=== PATIENT | male | born 1980 ===

== ENCOUNTER 2022-02-16 10:23 | Emergency (ER) | payer OTHER ==
[2022-02-16] MEDS ORDERED: BALANCED SALT IRRIG (BSS) OPHTH SOLN 15 ML OU ONE (11:13)
[2022-02-16] MEDS ORDERED: LIDOCAINE 1%/EPINEPHRINE 1:100,000 VIAL (20 ML) INFILTRATI NR (11:30)
--- NOTE | 2022-02-16 11:31 | Emergency Department Report ---
Blank Doc - Documentation Documentation: 41-year-old male presents to the ED for laceration to the forehead ,above the r ight eye and right eye trauma. Patient states that he was attempting to move a metal arcelia when approximately 20 -40 weight hit him in the face causing trauma to his face. Patient currently unable to open his right eye. Has bruising noted to his right eye with swelling. Has laceration with bleeding controlled. This initial assessment/diagnostic orders/clinical plan/treatment(s) is/are subject to change based on patients health status, clinical progression and re- assessment by fellow clinical providers in the ED. Further treatment and workup at subsequent clinical providers discretion. Patient/guardian urged not to elope from the ED as their condition may be serious if not clinically assessed and managed.
[2022-02-16] MEDS ORDERED: LIDOCAINE 2%/EPINEPHRINE 1:200,000 VIAL (20 ML) INFILTRATI ONE (11:34)
[2022-02-16] MEDS ORDERED: TETRACAINE 0.5% OPHTH SOLN 4ML OU STA (12:12)
[2022-02-16] MEDS ORDERED: TETANUS,DIPH,PERTUSS(ACELL) VACCINE 0.5 ML SYRINGE IM ONE (13:20)
--- NOTE | 2022-02-16 14:45 | Cat Scan Report ---
CT MAXILLOFACIAL WITHOUT CONTRAST INDICATION / CLINICAL INFORMATION: patient hit and face with 20lb weight. TECHNIQUE: All CT scans at this location are performed using CT dose reduction for ALARA by means of automated e xposure control. COMPARISON: None available. FINDINGS: FACIAL BONES: There is edema involving right periorbital soft tissues extending along the right foreh ead. There is slight flattening of the anterior nasal bones with slight angulation of the right. Lyons pilar, the edema does not appear to significantly extend within this region and the findings at may be chronic; correlation be needed. Otherwise, there is no clear CT evidence of acute fracture of the fac ial bones. The orbital garibay, sinuses and zygomatic arches appear intact. PARANASAL SINUSES: There is mild mucosal thickening within the maxillary sinuses with opacification o f the ostiomeatal complexes, greater on the left. There is also somewhat milder mucosal thickening wi thin the left ethmoid air cells. There is mild to moderate deviation of the nasal septum toward the r ight. ORBITS: There is notable right periorbital soft tissue edema. There is no clear CT evidence of signif icant post septal inflammatory changes at. The optic globes appear to demonstrate appropriate size an d configuration. VISUALIZED INTRACRANIAL STRUCTURES: No significant abnormality. ADDITIONAL FINDINGS: None. IMPRESSION: 1. There is edema involving right periorbital and forehead soft tissues with a slight flattening an d angulation of the anterior nasal bones as described. Otherwise, the remaining facial bones includin g the orbital garibay, sinuses and zygomatic arches appear intact. 2. There is mild maxillary and ethmoid sinus inflammatory disease. Signer Name: Chapo Edouard MD Signed: 02/16/2022 2:41 PM Workstation Name: [id number]
[2022-02-16] MEDS ORDERED: MORPHINE 4 MG/1 ML INJ IV ONE (14:50)
[2022-02-16] MEDS ORDERED: ONDANSETRON 4 MG/2 ML INJ IV ONE (14:50)
--- NOTE | 2022-02-16 14:50 | Emergency Department Report ---
ED Head Trauma HPI - General Chief complaint: Laceration/Recheck/Suture Stated complaint: RT EYE LACERATION/WORK RELATED Source: patient Mode of arrival: Ambulatory Limitations: No Limitations - History of Present Illness Initial comments: 41-year-old male presents to the ED with left laceration to the forehead, abrasion near right eye, and trauma to the right eye. Patient states that he was at work when a 30 to 40 pound arcelia hit him in the eye. Patient is unable to open his right eye. He has bruising discoloration obvious edema noted to the right. Bleeding is controlled to the forehead with bandage and dressing. He denies any LOC. Patient is alert and oriented x3. States that last tetanus shot was 15 years ago. Patient states that he did not have any pain present to his eye but is unable to open the eye. Patient is alert and oriented x3. No acute distress noted. No ill appearance noted. - Related Data Allergies/Adverse reactions: Allergies Allergy/AdvReac Type Severity Reaction Status Date / Time No Known Allergies Allergy Verified 02/16/22 10:29 ED Review of Systems ROS: Stated complaint: RT EYE LACERATION/WORK RELATED Other details as noted in HPI ED Physical Exam - General Limitations: No Limitations ED Course Vital Signs 02/16/22 02/16/22 10:29 15:31 Temperature 99.2 F 98.7 F Pulse Rate 84 88 Respiratory 16 16 Rate Blood Pressure 151/98 148/87 [Left] O2 Sat by Pulse 98 100 Oximetry - Laceration /Wound Repair Right Upper Face Wound Location: face Wound Length (cm): 2 Wound's Depth, Shape: superficial Wound Explored: clean Irrigated w/ Saline (ccs): 100 Anesthesia: Lidocaine w/ Epi Volume Anesthetic (ccs): 6 Wound Debrided: minimal Wound Repaired With: sutures Suture Size/Type: 6:0 Number of Sutures: 5 Layer Closure?: No Sterile Dressing Applied?: Yes - Radiology Data [facility] [address] [place] [address] Cat Scan Report Signed Patient: ROWAN SARGENT MR#: [id number] : 1980 Acct:[id number] Age/Sex: 41 / M ADM Date: 02/16/22 Loc: ED Attending Dr: Ordering Physician: RUCHI SANDHU Date of Service: 02/16/22 Procedure(s): CT facial bones wo con Accession Number(s): [id number] cc: RAISSA BRICENO [facility] CT MAXILLOFACIAL WITHOUT CONTRAST INDICATION / CLINICAL INFORMATION: patient hit and face with 20lb weight. TECHNIQUE: All CT scans at this location are performed using CT dose reduction for ALARA by means of automated exposure control. COMPARISON: None available. FINDINGS: FACIAL BONES: There is edema involving right periorbital soft tissues extending along the right forehead. There is slight flattening of the anterior nasal bones with slight angulation of the right. However, the edema does not appear to significantly extend within this region and the findings at may be chronic; correlation be needed. Otherwise, there is no clear CT evidence of acute fracture of the facial bones. The orbital garibay, sinuses and zygomatic arches appear intact. PARANASAL SINUSES: There is mild mucosal thickening within the maxillary sinuses with opacification of the ostiomeatal complexes, greater on the left. There is also somewhat milder mucosal thickening within the left ethmoid air cells. There is mild to moderate deviation of the nasal septum toward the right. ORBITS: There is notable right periorbital soft tissue edema. There is no clear CT evidence of significant post septal inflammatory changes at. The optic globes appear to demonstrate appropriate size and configuration. VISUALIZED INTRACRANIAL STRUCTURES: No significant abnormality. ADDITIONAL FINDINGS: None. IMPRESSION: 1. There is edema involving right periorbital and forehead soft tissues with a slight flattening and angulation of the anterior nasal bones as described. Otherwise, the remaining facial bones including the orbital garibay, sinuses and zygomatic arches appear intact. 2. There is mild maxillary and ethmoid sinus inflammatory disease. Signer Name: Chapo Edouard MD Signed: 02/16/2022 2:41 PM Workstation Name: [id number] Transcribed By: MR Dictated By: Chapo Edouard MD Electronically Authenticated By: Chapo Edouard MD Signed Date/Time: 02/16/22 1441 DD/ 1436 TD/TT: - Medical Decision Making 41-year-old male presents to the ED with left laceration to the forehead, abrasion near right eye, and trauma to the right eye. Patient states that he was at work when a 30 to 40 pound arcelia hit him in the eye. Patient is unable to open his right eye. He has bruising discoloration obvious edema noted to the right. Bleeding is controlled to the forehead with bandage and dressing. He denies any LOC. Patient is alert and oriented x3. States that last tetanus shot was 15 years ago. Patient states that he did not have any pain present to his eye but is unable to open the eye. Patient is alert and oriented x3. No acute distress noted. No ill appearance noted. Dr. Hubbard examination with patient. Patient has a lack inner CE[facility] ENT you is involving the lacrimal gland. Leg up the upper lower eyelid for thickening involving the edge. Globe intact. Contacted [facility]. Patient accepted by Dr. Shaw. Patient transported to [facility] via ambulance in stable. Critical care attestation.: If time is entered above; I have spent that time in minutes in the direct care of this critically ill patient, excluding procedure time. ED Disposition Clinical Impression: Right eye injury Qualifiers: Encounter type: initial encounter Qualified Code(s): S05.91XA - Unspecified injury of right eye and orbit, initial encounter Disposition: 04 INTERMEDIATE CARE FACILITY Is pt being admited?: No Does the pt Need Aspirin: No Condition: Stable Referrals: PRIMARY CARE, [Primary Care Provider] - 3-5 Days
[2022-02-16 15:32] VITALS: BP 148/87
== END 2022-02-17 05:20 ==
LOC: EDBD 10:23 → ED 10:23
DX: S05.8X1A Other injuries of right eye and orbit, initial encounter (principal); W51.XXXA Accidental striking against or bumped into by another person, initial encounter; Y93.89 Activity, other specified; Y92.89 Other specified places as the place of occurrence of the external cause; Y99.8 Other external cause status
CPT/HCPCS: 12013; 70486; 90471; 90715; 96365; 96375; 99283; J0690; J2270; J2405; J3490